=== PATIENT | female | born 1945 | race Caucasian/White ===

== ENCOUNTER 2018-03-30 11:44 | Inpatient (IN) | payer MEDICARE, BC ==
[~2018-03-30] VITALS: Ht 157.5 cm; Wt 69.1 kg
[2018-03-30] MEDS ORDERED: ondansetron/PF 4mg/2ml inj IV ONE (12:05)
[2018-03-30] MEDS ORDERED: potassium Cl 40MEQ/NS 500ml 500 ML IV PRN ×2 (12:25)
[2018-03-30] MEDS ORDERED: HYDROcodone/acetaminophen 10/325mg tab PO PRN (12:25)
[2018-03-30] MEDS ORDERED: magnesium hydroxide 30ml (MOM) UD suspension PO PRN (12:25)
[2018-03-30] MEDS ORDERED: HYDROmorphone inj. 0.5 MG/0.5 ML DISP.SYRIN IV PRN ×2 (12:25)
[2018-03-30] MEDS ORDERED: magnesium Cl slow-release 64mg tablet PO PRN (12:25)
[2018-03-30] MEDS ORDERED: HYDROcodone/acetaminophen 5mg/325mg tablet PO PRN (12:25)
[2018-03-30] MEDS ORDERED: magnesium 4gm in 100ml NS 100 ML IV PRN (12:25)
[2018-03-30] MEDS ORDERED: ondansetron/PF 4mg/2ml inj IV PRN (12:25)
[2018-03-30] MEDS: K and/or MAG REPLACEMENT MC SCH (12:25)
[2018-03-30] MEDS ORDERED: mag hydrox/Alum hydrox/simeth 30ml oral suspension PO PRN (12:25)
[2018-03-30] MEDS ORDERED: magnesium 1gm/100ml D5W IVPB 50 ML IV PRN (12:25)
[2018-03-30] MEDS ORDERED: potassium Cl 20 mEq SR tablet PO PRN ×2 (12:25)
[2018-03-30] MEDS ORDERED: acetaminophen 325mg tablet PO PRN ×2 (12:25)
[2018-03-30] MEDS ORDERED: normal saline 1000ML IV soln IVB ONE (12:35)
[2018-03-30 12:43] LABS: BASOPHILS % (AUTO) 0.1 % (0-1); EOSINOPHILS % (AUTO) 0 % (0-6); HEMATOCRIT 33.6 % (35.0-45.0); HEMOGLOBIN 11.5 g/dl (12.0-16.0); LYMPHOCYTES # (AUTO) 0.3 X10'3 (1.1-4.8); LYMPHOCYTES % (AUTO) 2.8 % (21-51); MEAN CORPUSCULAR HEMOGLOBIN 31.5 PG (27.0-31.0); MEAN CORPUSCULAR HGB CONC 34.2 % (33.0-36.5); MEAN CORPUSCULAR VOLUME 92.1 FL (78-98); MEAN PLATELET VOLUME 8.4 FL (7.4-10.4); MONOCYTES # (AUTO) 0.3 X10'3 (0-0.9); NEUTROPHILS # (AUTO) 10.9 X10'3 (1.8-7.7); NEUTROPHILS % (AUTO) 94.1 % (42-75); PLATELET COUNT 139 X10'3 (140-440); RED BLOOD COUNT 3.65 X10'6 (4.20-5.60); RED CELL DISTRIBUTION WIDTH 12.6 % (11.5-14.5); WHITE BLOOD COUNT 11.6 X10'3 (4.5-11.0)
[2018-03-30 12:53] LABS: INR 1.1 INR; PARTIAL THROMBOPLASTIN TIME 28 SECONDS (22-32); PROTHROMBIN TIME 11.1 SECONDS (9.0-12.0)
[2018-03-30 12:57] LABS: ALANINE AMINOTRANSFERASE 30 U/L (12-78); ALBUMIN 2.5 G/DL (3.4-5.0); ALBUMIN/GLOBULIN RATIO 0.8 (1.1-1.5); ALKALINE PHOSPHATASE 41 IU/L (46-116); ANION GAP 8 (8-16); ASPARTATE AMINO TRANSFERASE 28 U/L (10-37); BILIRUBIN,TOTAL 0.4 MG/DL (0.1-1.0); BLOOD UREA NITROGEN 19 MG/DL (7-18); BUN/CREATININE RATIO 17.9 (6.6-38.0); CALCIUM 7.8 MG/DL (8.5-10.1); CHLORIDE 109 MMOL/L (99-107); CREATININE 1.06 MG/DL (0.40-0.90); GLUCOSE 130 MG/DL (70-104); LIPASE < 50 U/L (73-393); POTASSIUM 3.8 MMOL/L (3.5-5.1); SODIUM 140 MMOL/L (135-145); TOTAL PROTEIN 5.8 G/DL (6.4-8.2); eGFR 51 ML/MIN
[2018-03-30 13:01] LABS: PLATELET ESTIMATE DECREASED; TOTAL CELLS COUNTED 100
[2018-03-30] MEDS ORDERED: ZOLP10TA PO (13:01)
[2018-03-30] MEDS ORDERED: FOLI0.4T2 PO (13:01)
[2018-03-30] MEDS ORDERED: LEVO50TA PO (13:01)
[2018-03-30] MEDS ORDERED: PANT-47 PO (13:01)
[2018-03-30] MEDS ORDERED: PRAV80TA3 PO (13:01)
[2018-03-30] MEDS ORDERED: ASPI81TA52 PO (13:01)
[2018-03-30] MEDS ORDERED: OMEG1CAP PO (13:01)
[2018-03-30] MEDS ORDERED: TELM40TA2 PO (13:01)
[2018-03-30] MEDS ORDERED: CITA20TA2 PO (13:01)
[2018-03-30] MEDS ORDERED: ETAN50DI SUBCUT (13:02)
[2018-03-30] MEDS: normal saline 1000ml 1,000 ML IV SCH ×2 (13:37→18:01)
[2018-03-30 13:59] LABS: CLARITY,URINE CLOUDY (Clear); COLOR,URINE ORANGE (Yellow)
[2018-03-30 14:08] LABS: UA COLLECTION TYPE CLN CATCH MIDSTREAM
[2018-03-30 14:09] LABS: RBC,URINE 0-2 /HPF (0-2); WBC,URINE TNTC /HPF (0-4)
[2018-03-30 14:10] LABS: BACTERIA,URINE 4+ /HPF (Neg); MUCUS STRANDS NONE SEEN /LPF (Neg); SQUAMOUS EPITHELIAL CELL,UR FEW /LPF (FEW); WBC CLUMPS,URINE MODERATE /HPF (NEGATIVE)
[2018-03-30] MEDS ORDERED: HYDROmorphone 1 mg/ml syringe IV PRN ×2 (15:22)
[2018-03-30] MEDS ORDERED: non-formulary drug (Zolpidem Tartrate (Ambien) 1 TAB) PO SCH (17:45)
[2018-03-30 19:00] VITALS: BP 107/52
[2018-03-31] VITALS (31 sets, daily range): BP systolic 80–134; BP diastolic 45–86
[2018-03-31] MEDS: normal saline 1000ml 1,000 ML IV SCH ×2 (03:05→12:48)
[2018-03-31 05:29] LABS: HEMATOCRIT 30.5 % (35.0-45.0); HEMOGLOBIN 10.5 g/dl (12.0-16.0); MEAN CORPUSCULAR HEMOGLOBIN 31.5 PG (27.0-31.0); MEAN CORPUSCULAR HGB CONC 34.3 % (33.0-36.5); MEAN CORPUSCULAR VOLUME 91.8 FL (78-98); MEAN PLATELET VOLUME 8.5 FL (7.4-10.4); PLATELET COUNT 112 X10'3 (140-440); RED BLOOD COUNT 3.32 X10'6 (4.20-5.60); RED CELL DISTRIBUTION WIDTH 12.8 % (11.5-14.5); WHITE BLOOD COUNT 7.9 X10'3 (4.5-11.0)
[2018-03-31 05:33] LABS: ALBUMIN 2.1 G/DL (3.4-5.0); ANION GAP 5 (8-16); BLOOD UREA NITROGEN 21 MG/DL (7-18); BUN/CREATININE RATIO 21.4 (6.6-38.0); CALCIUM 7.4 MG/DL (8.5-10.1); CHLORIDE 111 MMOL/L (99-107); CREATININE 0.98 MG/DL (0.40-0.90); GLUCOSE 99 MG/DL (70-104); MAGNESIUM 1.6 MG/DL (1.5-2.4); POTASSIUM 3.9 MMOL/L (3.5-5.1); SODIUM 141 MMOL/L (135-145); TOTAL CARBON DIOXIDE 24.9 MMOL/L (24-32); eGFR 56 ML/MIN
[2018-03-31] MEDS: K and/or MAG REPLACEMENT MC SCH (06:49)
[2018-03-31] MEDS: levoTHYROXINE 25mcg tablet PO SCH (07:00)
[2018-03-31] MEDS ORDERED: iohexol 300 MG/1 ML 50ml polymer ONE (07:44)
[2018-03-31] MEDS: CITALOpram 10mg tablet PO SCH (07:46)
[2018-03-31] MEDS: pravastatin 40mg tablet PO SCH (07:48)
[2018-03-31] MEDS: pantoprazole 40mg Tablet.DR PO SCH (07:48)
[2018-03-31] MEDS ORDERED: losartan 50mg tablet PO SCH (08:00)
[2018-03-31] MEDS ORDERED: non-formulary drug (Pravastatin Sodium 1 TAB) PO SCH (08:00)
[2018-03-31] MEDS ORDERED: CefTRIAXone/D5W-Rocephin 1gm 50 ML IV SCH (08:00)
[2018-03-31] MEDS ORDERED: CITALOPRAM HYDROBROMIDE PO SCH (08:00)
[2018-03-31] MEDS ORDERED: TELMISARTAN PO SCH (08:00)
[2018-03-31] MEDS ORDERED: non-formulary drug (Levothyroxine Sodium (Synthroid) 1 TAB) PO SCH (08:00)
[2018-03-31] MEDS ORDERED: fentaNYL/PF 50MCG/1 ML 2ML syringe ONE (08:29)
[2018-03-31] MEDS ORDERED: LIDOcaine 2% (20mg/ml) 5ml vial ONE (08:34)
[2018-03-31] MEDS ORDERED: propofol inj 20 ML IV ONE (08:34)
[2018-03-31] MEDS ORDERED: rocuronium 10mg/ml inj IV ONE (08:34)
[2018-03-31] MEDS ORDERED: midazolam 2 mg/2 ml injection ONE (09:19)
[2018-03-31] MEDS ORDERED: normal saline 1000ml 1,000 ML IV ONE ×2 (09:42→10:50)
[2018-03-31] MEDS ORDERED: morphine 4 MG/ML inj SYRINge IV PRN ×3 (09:45→11:10)
[2018-03-31] MEDS ORDERED: HYDROmorphone inj. 0.5 MG/0.5 ML DISP.SYRIN IV PRN (09:45)
[2018-03-31] MEDS ORDERED: ondansetron/PF 4mg/2ml inj IV PRN ×2 (09:45→11:10)
[2018-03-31 10:01] LABS: CLARITY,URINE TURBID (Clear); COLOR,URINE YELLOW (Yellow); GLUCOSE, URINE NEGATIVE (Neg); KETONES,URINE TRACE mg/dl (Neg); LEUKOCYTE ESTERASE ,URINE LARGE (Neg); NITRITES, URINE POSITIVE (Neg); OCCULT BLOOD,URINE LARGE (Neg); PROTEIN,URINE 100 mg/dl (Neg); UROBILINOGEN,URINE 0.2 E.U/dL (0.2-1.0)
[2018-03-31] MEDS ORDERED: neostigmine methylsulfate 1 MG/ML 10ml vial ONE (10:04)
[2018-03-31] MEDS ORDERED: ondansetron/PF 4mg/2ml inj ONE (10:04)
[2018-03-31] MEDS ORDERED: glycopyrrolate 0.2mg/ml inj ONE (10:04)
[2018-03-31] MEDS ORDERED: metoprolol tartrate 1mg/ml inj IV ONE (10:04)
[2018-03-31 10:06] LABS: UA COLLECTION TYPE OTHER
[2018-03-31] MEDS ORDERED: succinylcholine 20mg/ml inj IV ONE (10:06)
[2018-03-31 10:07] LABS: WBC,URINE TNTC /HPF (0-4)
[2018-03-31 10:08] LABS: BACTERIA,URINE 4+ /HPF (Neg); MUCUS STRANDS FEW /LPF (Neg); RENAL CELLS, URINE FEW /HPF; SQUAMOUS EPITHELIAL CELL,UR FEW /LPF (FEW)
[2018-03-31] MEDS ORDERED: albumin (Human) 5% 250ml 250 ML IV ONE (10:08)
[2018-03-31] MEDS ORDERED: albumin (Human) 5% 250 ML IV solution IV STA (10:10)
[2018-03-31] MEDS ORDERED: NORepinephrine 8mg/ 250ml NS 250 ML IV PRN (10:38)
[2018-03-31] MEDS ORDERED: midazolam 100mg in NS 100ml 100 ML IV PRN (10:49)
[2018-03-31] MEDS ORDERED: acetaminophen 325mg tablet PO PRN ×2 (11:10)
[2018-03-31] MEDS ORDERED: potassium Cl 20 mEq SR tablet PO PRN (11:10)
[2018-03-31] MEDS: enoxaparin 40mg/0.4ml syringe SUBCUT SCH (11:10)
[2018-03-31] MEDS ORDERED: albuterol 2.5 MG/3 ML nebule NEB PRN (11:10)
[2018-03-31] MEDS ORDERED: magnesium hydroxide 30ml (MOM) UD suspension PO PRN (11:10)
[2018-03-31] MEDS: K, MAG and/or Phos replacement - Verify level? MC SCH (11:10)
[2018-03-31] MEDS ORDERED: magnesium 1gm/100ml D5W IVPB 100 ML IV PRN (11:25)
[2018-03-31] MEDS: pantoprazole 40 MG vial IV SCH (13:04)
[2018-03-31] MEDS: hydrocortisone sod succ/PF 100mg/2ml inj. IV SCH ×2 (14:08→21:10)
[2018-03-31] MEDS: folic acid 0.4mg tablet PO SCH (20:00)
[2018-03-31] MEDS: omega-3 acid ethyl esters 1GM capsule PO SCH (20:00)
[2018-04-01] VITALS (24 sets, daily range): BP systolic 96–133; BP diastolic 48–79
[2018-04-01] MEDS ORDERED: atropine 0.1mg/ml 10ml syringe IV PRN (00:20)
[2018-04-01] MEDS ORDERED: atropine 0.1mg/ml 10ml syringe ONE (00:36)
[2018-04-01] MEDS: hydrocortisone sod succ/PF 100mg/2ml inj. IV SCH ×4 (02:00→20:08)
[2018-04-01 03:50] LABS: ABG BASE EXCESS -7.8 mmol/L (-2.0-3.0); ABG HCO3 17.1 mmol/L (22.0-26.0); ABG OXYGEN SATURATION 98.4 % (95-98); ABG PCO2 (T) 33.2 mmHg (32.0-45.0); ABG PH (T) 7.331 (7.350-7.450); ABG PO2 (T) 135.2 mmHg (83-108); ALLEN'S TEST Positive; FCOHb 0.3 % (0.5-1.5); FMetHb 0.1 % (0.3-1.12); MINUTE VOLUME 7 L/min; PATIENT TEMPERATURE 37.2; PEEP 5 cm H2O; RESPIRATORY RATE (OBSERVED) 11 b/min; TOTAL HEMOGLOBIN 10.9 G/dl (12.0-16.0)
[2018-04-01] MEDS: normal saline 1000ml 1,000 ML IV SCH (04:24)
[2018-04-01 05:54] LABS: BASOPHILS % (AUTO) 0.1 % (0-1); EOSINOPHILS % (AUTO) 0 % (0-6); HEMATOCRIT 30.4 % (35.0-45.0); HEMOGLOBIN 10.4 g/dl (12.0-16.0); LYMPHOCYTES # (AUTO) 0.6 X10'3 (1.1-4.8); LYMPHOCYTES % (AUTO) 10.2 % (21-51); MEAN CORPUSCULAR HEMOGLOBIN 31.5 PG (27.0-31.0); MEAN CORPUSCULAR HGB CONC 34.3 % (33.0-36.5); MEAN CORPUSCULAR VOLUME 91.7 FL (78-98); MEAN PLATELET VOLUME 9.4 FL (7.4-10.4); MONOCYTES # (AUTO) 0.2 X10'3 (0-0.9); MONOCYTES % (AUTO) 3.6 % (2-12); NEUTROPHILS # (AUTO) 5.5 X10'3 (1.8-7.7); NEUTROPHILS % (AUTO) 86.1 % (42-75); PLATELET COUNT 112 X10'3 (140-440); RED BLOOD COUNT 3.31 X10'6 (4.20-5.60); RED CELL DISTRIBUTION WIDTH 13.6 % (11.5-14.5); WHITE BLOOD COUNT 6.3 X10'3 (4.5-11.0)
[2018-04-01 06:17] LABS: PARTIAL THROMBOPLASTIN TIME 30 SECONDS (22-32); PROTHROMBIN TIME 10.2 SECONDS (9.0-12.0)
[2018-04-01 06:50] LABS: ALANINE AMINOTRANSFERASE 25 U/L (12-78); ALBUMIN 2.1 G/DL (3.4-5.0); ALBUMIN/GLOBULIN RATIO 0.7 (1.1-1.5); ALKALINE PHOSPHATASE 50 IU/L (46-116); ANION GAP 15 (8-16); ASPARTATE AMINO TRANSFERASE 19 U/L (10-37); BILIRUBIN,TOTAL 0.3 MG/DL (0.1-1.0); BLOOD UREA NITROGEN 18 MG/DL (7-18); BUN/CREATININE RATIO 23.1 (6.6-38.0); CALCIUM 7.4 MG/DL (8.5-10.1); CHLORIDE 114 MMOL/L (99-107); CREATININE 0.78 MG/DL (0.40-0.90); GLUCOSE 91 MG/DL (70-104); MAGNESIUM 1.7 MG/DL (1.5-2.4); PHOSPHORUS 2.6 MG/DL (2.3-4.5); POTASSIUM 3.5 MMOL/L (3.5-5.1); SODIUM 148 MMOL/L (135-145); TOTAL PROTEIN 5.2 G/DL (6.4-8.2); eGFR 73 ML/MIN
[2018-04-01] MEDS: K and/or MAG REPLACEMENT MC SCH (08:00)
[2018-04-01] MEDS: K, MAG and/or Phos replacement - Verify level? MC SCH (08:00)
[2018-04-01] MEDS: pantoprazole 40 MG vial IV SCH (08:00)
[2018-04-01] MEDS: enoxaparin 40mg/0.4ml syringe SUBCUT SCH (09:18)
[2018-04-01] MEDS: cefepime 2g/NS 100ml ADVANTAGE 100 ML IV SCH ×2 (09:19→20:09)
[2018-04-01] MEDS: pantoprazole 40mg Tablet.DR PO SCH (09:19)
[2018-04-01] MEDS: pravastatin 40mg tablet PO SCH (09:19)
[2018-04-01] MEDS: levoTHYROXINE 25mcg tablet PO SCH (09:19)
[2018-04-01] MEDS: CITALOpram 10mg tablet PO SCH (09:19)
[2018-04-01] MEDS: omega-3 acid ethyl esters 1GM capsule PO SCH ×2 (09:19→20:08)
[2018-04-01] MEDS: sulfamethoxazole/trimethoprim DS (800/160mg) tablet PO SCH ×2 (09:19→20:08)
[2018-04-01] MEDS: folic acid 0.4mg tablet PO SCH ×2 (09:19→20:08)
[2018-04-01] MEDS: aspirin 81mg tablet.DR PO SCH (09:20)
[2018-04-01] MEDS: zolpidem 5mg tablet PO PRN (22:39)
[2018-04-02] VITALS (21 sets, daily range): BP systolic 103–132; BP diastolic 48–74
[2018-04-02] MEDS: hydrocortisone sod succ/PF 100mg/2ml inj. IV SCH ×3 (02:22→20:16)
[2018-04-02 05:15] LABS: BASOPHILS % (AUTO) 0 % (0-1); EOSINOPHILS % (AUTO) 0 % (0-6); HEMATOCRIT 31.5 % (35.0-45.0); HEMOGLOBIN 10.8 g/dl (12.0-16.0); LYMPHOCYTES # (AUTO) 0.8 X10'3 (1.1-4.8); LYMPHOCYTES % (AUTO) 10.1 % (21-51); MEAN CORPUSCULAR HEMOGLOBIN 31.3 PG (27.0-31.0); MEAN CORPUSCULAR HGB CONC 34.1 % (33.0-36.5); MEAN CORPUSCULAR VOLUME 91.6 FL (78-98); MEAN PLATELET VOLUME 9.6 FL (7.4-10.4); MONOCYTES # (AUTO) 0.2 X10'3 (0-0.9); MONOCYTES % (AUTO) 3.2 % (2-12); NEUTROPHILS # (AUTO) 6.7 X10'3 (1.8-7.7); NEUTROPHILS % (AUTO) 86.7 % (42-75); PLATELET COUNT 146 X10'3 (140-440); RED BLOOD COUNT 3.44 X10'6 (4.20-5.60); RED CELL DISTRIBUTION WIDTH 13.1 % (11.5-14.5); WHITE BLOOD COUNT 7.7 X10'3 (4.5-11.0)
[2018-04-02 05:27] LABS: PARTIAL THROMBOPLASTIN TIME 27 SECONDS (22-32); PROTHROMBIN TIME 9.9 SECONDS (9.0-12.0)
[2018-04-02 05:44] LABS: ALANINE AMINOTRANSFERASE 20 U/L (12-78); ALBUMIN 2.1 G/DL (3.4-5.0); ALBUMIN/GLOBULIN RATIO 0.6 (1.1-1.5); ALKALINE PHOSPHATASE 49 IU/L (46-116); ANION GAP 9 (8-16); ASPARTATE AMINO TRANSFERASE 13 U/L (10-37); BILIRUBIN,TOTAL 0.3 MG/DL (0.1-1.0); BLOOD UREA NITROGEN 18 MG/DL (7-18); BUN/CREATININE RATIO 23.7 (6.6-38.0); CALCIUM 8.1 MG/DL (8.5-10.1); CHLORIDE 112 MMOL/L (99-107); CREATININE 0.76 MG/DL (0.40-0.90); GLUCOSE 140 MG/DL (70-104); PHOSPHORUS 1.3 MG/DL (2.3-4.5); POTASSIUM 3.4 MMOL/L (3.5-5.1); SODIUM 144 MMOL/L (135-145); TOTAL CARBON DIOXIDE 22.7 MMOL/L (24-32); TOTAL PROTEIN 5.5 G/DL (6.4-8.2); eGFR 75 ML/MIN
[2018-04-02] MEDS: aspirin 81mg tablet.DR PO SCH (07:45)
[2018-04-02] MEDS: pravastatin 40mg tablet PO SCH (07:45)
[2018-04-02] MEDS: levoTHYROXINE 25mcg tablet PO SCH (07:45)
[2018-04-02] MEDS: sulfamethoxazole/trimethoprim DS (800/160mg) tablet PO SCH ×2 (07:45→20:16)
[2018-04-02] MEDS: folic acid 0.4mg tablet PO SCH ×2 (07:45→20:15)
[2018-04-02] MEDS: CITALOpram 10mg tablet PO SCH (07:45)
[2018-04-02] MEDS: omega-3 acid ethyl esters 1GM capsule PO SCH ×2 (07:46→20:14)
[2018-04-02] MEDS: pantoprazole 40mg Tablet.DR PO SCH (07:46)
[2018-04-02] MEDS: cefepime 2g/NS 100ml ADVANTAGE 100 ML IV SCH ×2 (07:46→20:15)
[2018-04-02] MEDS: enoxaparin 40mg/0.4ml syringe SUBCUT SCH (07:47)
[2018-04-02] MEDS: K and/or MAG REPLACEMENT MC SCH (08:00)
[2018-04-02] MEDS: K, MAG and/or Phos replacement - Verify level? MC SCH (08:00)
[2018-04-02] MEDS: potassium Cl 20 mEq SR tablet PO PRN ×2 (13:45→17:34)
[2018-04-02] MEDS ORDERED: benzocaine/menthol oral lozeng 1 EACH BOX MM PRN (13:45)
[2018-04-02] MEDS: zolpidem 5mg tablet PO PRN (22:02)
[2018-04-03] VITALS (11 sets, daily range): BP systolic 111–136; BP diastolic 53–75
[2018-04-03 05:18] LABS: BASOPHILS # (AUTO) 0.1 X10'3 (0-0.2); BASOPHILS % (AUTO) 0.8 % (0-1); EOSINOPHILS % (AUTO) 0 % (0-6); HEMOGLOBIN 10.9 g/dl (12.0-16.0); LYMPHOCYTES # (AUTO) 1.6 X10'3 (1.1-4.8); LYMPHOCYTES % (AUTO) 18.5 % (21-51); MEAN CORPUSCULAR HEMOGLOBIN 31.2 PG (27.0-31.0); MEAN CORPUSCULAR VOLUME 91.8 FL (78-98); MEAN PLATELET VOLUME 9.9 FL (7.4-10.4); MONOCYTES # (AUTO) 0.7 X10'3 (0-0.9); MONOCYTES % (AUTO) 7.7 % (2-12); NEUTROPHILS # (AUTO) 6.3 X10'3 (1.8-7.7); PARTIAL THROMBOPLASTIN TIME 25 SECONDS (22-32); PLATELET COUNT 155 X10'3 (140-440); RED BLOOD COUNT 3.49 X10'6 (4.20-5.60); RED CELL DISTRIBUTION WIDTH 13.1 % (11.5-14.5); WHITE BLOOD COUNT 8.6 X10'3 (4.5-11.0)
[2018-04-03 05:30] LABS: ALANINE AMINOTRANSFERASE 22 U/L (12-78); ALBUMIN 2.1 G/DL (3.4-5.0); ALBUMIN/GLOBULIN RATIO 0.7 (1.1-1.5); ALKALINE PHOSPHATASE 44 IU/L (46-116); ANION GAP 6 (8-16); ASPARTATE AMINO TRANSFERASE 16 U/L (10-37); BILIRUBIN,TOTAL 0.3 MG/DL (0.1-1.0); BLOOD UREA NITROGEN 23 MG/DL (7-18); BUN/CREATININE RATIO 26.7 (6.6-38.0); CALCIUM 8.1 MG/DL (8.5-10.1); CHLORIDE 113 MMOL/L (99-107); CREATININE 0.86 MG/DL (0.40-0.90); GLUCOSE 124 MG/DL (70-104); MAGNESIUM 1.9 MG/DL (1.5-2.4); PHOSPHORUS 1.3 MG/DL (2.3-4.5); POTASSIUM 3.9 MMOL/L (3.5-5.1); SODIUM 143 MMOL/L (135-145); TOTAL CARBON DIOXIDE 24.2 MMOL/L (24-32); TOTAL PROTEIN 5.2 G/DL (6.4-8.2); eGFR 65 ML/MIN
[2018-04-03] MEDS: K, MAG and/or Phos replacement - Verify level? MC SCH (08:00)
[2018-04-03] MEDS: folic acid 0.4mg tablet PO SCH ×2 (08:02→20:27)
[2018-04-03] MEDS: aspirin 81mg tablet.DR PO SCH (08:02)
[2018-04-03] MEDS: pantoprazole 40mg Tablet.DR PO SCH (08:02)
[2018-04-03] MEDS: CITALOpram 10mg tablet PO SCH (08:02)
[2018-04-03] MEDS: omega-3 acid ethyl esters 1GM capsule PO SCH ×2 (08:03→20:27)
[2018-04-03] MEDS: levoTHYROXINE 25mcg tablet PO SCH (08:03)
[2018-04-03] MEDS: sulfamethoxazole/trimethoprim DS (800/160mg) tablet PO SCH (08:03)
[2018-04-03] MEDS: pravastatin 40mg tablet PO SCH (08:06)
[2018-04-03] MEDS: hydrocortisone sod succ/PF 100mg/2ml inj. IV SCH ×2 (08:27→20:29)
[2018-04-03] MEDS: enoxaparin 40mg/0.4ml syringe SUBCUT SCH (08:27)
[2018-04-03] MEDS: cefepime 2g/NS 100ml ADVANTAGE 100 ML IV SCH ×2 (08:27→20:29)
[2018-04-03] MEDS: Neutra Phos packet PO PRN ×2 (13:11→20:44)
[2018-04-03] MEDS: zolpidem 5mg tablet PO PRN (22:21)
[2018-04-04] VITALS: BP 152/82
[2018-04-04] MEDS: Neutra Phos packet PO PRN (03:03)
[2018-04-04 05:12] LABS: BASOPHILS % (AUTO) 0.3 % (0-1); EOSINOPHILS # (AUTO) 0.1 X10'3 (0-0.9); EOSINOPHILS % (AUTO) 0.7 % (0-6); LYMPHOCYTES # (AUTO) 2.1 X10'3 (1.1-4.8); LYMPHOCYTES % (AUTO) 26.7 % (21-51); MEAN CORPUSCULAR HGB CONC 34.3 % (33.0-36.5); MEAN CORPUSCULAR VOLUME 90.5 FL (78-98); MEAN PLATELET VOLUME 8.6 FL (7.4-10.4); MONOCYTES # (AUTO) 0.8 X10'3 (0-0.9); MONOCYTES % (AUTO) 10.2 % (2-12); NEUTROPHILS # (AUTO) 4.9 X10'3 (1.8-7.7); NEUTROPHILS % (AUTO) 62.1 % (42-75); PLATELET COUNT 166 X10'3 (140-440); RED BLOOD COUNT 3.54 X10'6 (4.20-5.60); WHITE BLOOD COUNT 7.8 X10'3 (4.5-11.0)
[2018-04-04 05:23] LABS: PARTIAL THROMBOPLASTIN TIME 25 SECONDS (22-32); PROTHROMBIN TIME 10.4 SECONDS (9.0-12.0)
[2018-04-04 05:34] LABS: ALANINE AMINOTRANSFERASE 19 U/L (12-78); ALBUMIN 2.1 G/DL (3.4-5.0); ALBUMIN/GLOBULIN RATIO 0.7 (1.1-1.5); ALKALINE PHOSPHATASE 43 IU/L (46-116); ANION GAP 6 (8-16); ASPARTATE AMINO TRANSFERASE 16 U/L (10-37); BILIRUBIN,TOTAL 0.3 MG/DL (0.1-1.0); BLOOD UREA NITROGEN 16 MG/DL (7-18); BUN/CREATININE RATIO 21.3 (6.6-38.0); CALCIUM 8.1 MG/DL (8.5-10.1); CHLORIDE 110 MMOL/L (99-107); CREATININE 0.75 MG/DL (0.40-0.90); GLUCOSE 117 MG/DL (70-104); MAGNESIUM 1.8 MG/DL (1.5-2.4); PHOSPHORUS 1.9 MG/DL (2.3-4.5); POTASSIUM 3.8 MMOL/L (3.5-5.1); SODIUM 143 MMOL/L (135-145); TOTAL CARBON DIOXIDE 27.1 MMOL/L (24-32); TOTAL PROTEIN 5.1 G/DL (6.4-8.2); eGFR 76 ML/MIN
[2018-04-04 07:00] VITALS: BP 118/71
[2018-04-04] MEDS: levoTHYROXINE 25mcg tablet PO SCH (07:57)
[2018-04-04] MEDS: CITALOpram 10mg tablet PO SCH (08:00)
[2018-04-04] MEDS: hydrocortisone sod succ/PF 100mg/2ml inj. IV SCH ×2 (08:00→19:36)
[2018-04-04] MEDS: pantoprazole 40mg Tablet.DR PO SCH (08:00)
[2018-04-04] MEDS: folic acid 0.4mg tablet PO SCH ×2 (08:00→19:37)
[2018-04-04] MEDS: K, MAG and/or Phos replacement - Verify level? MC SCH (08:00)
[2018-04-04] MEDS: omega-3 acid ethyl esters 1GM capsule PO SCH ×2 (08:00→19:37)
[2018-04-04] MEDS: pravastatin 40mg tablet PO SCH (08:00)
[2018-04-04] MEDS: aspirin 81mg tablet.DR PO SCH (08:00)
[2018-04-04] MEDS: enoxaparin 40mg/0.4ml syringe SUBCUT SCH (08:01)
[2018-04-04] MEDS: cefepime 2g/NS 100ml ADVANTAGE 100 ML IV SCH ×2 (08:05→19:35)
[2018-04-04] MEDS ORDERED: bisacodyl 10mg suppository rectal RC STA (11:17)
[2018-04-04 12:00] VITALS: BP 139/76
[2018-04-04] MEDS: lactobacillus rhamnosus 10,000 MMU CELLS/CAPSULE PO SCH (19:37)
[2018-04-04] MEDS: docusate sod 100mg capsule PO SCH (19:37)
[2018-04-04 20:00] VITALS: BP 143/87
[2018-04-04] MEDS: zolpidem 5mg tablet PO PRN (21:42)
[2018-04-05] VITALS: BP 95/60
[2018-04-05 05:29] LABS: BASOPHILS % (AUTO) 0 % (0-1); EOSINOPHILS # (AUTO) 0.1 X10'3 (0-0.9); EOSINOPHILS % (AUTO) 1.4 % (0-6); HEMATOCRIT 31.7 % (35.0-45.0); HEMOGLOBIN 10.9 g/dl (12.0-16.0); LYMPHOCYTES # (AUTO) 2.2 X10'3 (1.1-4.8); LYMPHOCYTES % (AUTO) 29.3 % (21-51); MEAN CORPUSCULAR HEMOGLOBIN 31.4 PG (27.0-31.0); MEAN CORPUSCULAR HGB CONC 34.3 % (33.0-36.5); MEAN CORPUSCULAR VOLUME 91.4 FL (78-98); MEAN PLATELET VOLUME 8.8 FL (7.4-10.4); MONOCYTES # (AUTO) 0.6 X10'3 (0-0.9); MONOCYTES % (AUTO) 8.5 % (2-12); NEUTROPHILS # (AUTO) 4.5 X10'3 (1.8-7.7); NEUTROPHILS % (AUTO) 60.8 % (42-75); PLATELET COUNT 178 X10'3 (140-440); RED BLOOD COUNT 3.47 X10'6 (4.20-5.60); RED CELL DISTRIBUTION WIDTH 12.8 % (11.5-14.5); WHITE BLOOD COUNT 7.4 X10'3 (4.5-11.0)
[2018-04-05 05:31] LABS: PARTIAL THROMBOPLASTIN TIME 25 SECONDS (22-32); PROTHROMBIN TIME 10.5 SECONDS (9.0-12.0)
[2018-04-05 05:42] LABS: ALANINE AMINOTRANSFERASE 26 U/L (12-78); ALBUMIN 2.3 G/DL (3.4-5.0); ALBUMIN/GLOBULIN RATIO 0.8 (1.1-1.5); ALKALINE PHOSPHATASE 39 IU/L (46-116); ANION GAP 5 (8-16); ASPARTATE AMINO TRANSFERASE 19 U/L (10-37); BILIRUBIN,TOTAL 0.4 MG/DL (0.1-1.0); BLOOD UREA NITROGEN 14 MG/DL (7-18); BUN/CREATININE RATIO 18.9 (6.6-38.0); CALCIUM 8.5 MG/DL (8.5-10.1); CHLORIDE 108 MMOL/L (99-107); CREATININE 0.74 MG/DL (0.40-0.90); GLUCOSE 109 MG/DL (70-104); MAGNESIUM 1.8 MG/DL (1.5-2.4); PHOSPHORUS 2.9 MG/DL (2.3-4.5); POTASSIUM 3.7 MMOL/L (3.5-5.1); SODIUM 142 MMOL/L (135-145); TOTAL CARBON DIOXIDE 28.8 MMOL/L (24-32); TOTAL PROTEIN 5.2 G/DL (6.4-8.2); eGFR 77 ML/MIN
[2018-04-05 07:00] VITALS: BP 144/74
[2018-04-05] MEDS: omega-3 acid ethyl esters 1GM capsule PO SCH (07:54)
[2018-04-05] MEDS: K, MAG and/or Phos replacement - Verify level? MC SCH (08:00)
[2018-04-05] MEDS ORDERED: methylnaltrexone br 12mg/0.6ml inj***SubQ only SQ SCH (08:00)
[2018-04-05] MEDS: cefepime 2g/NS 100ml ADVANTAGE 100 ML IV SCH (08:10)
[2018-04-05] MEDS: CITALOpram 10mg tablet PO SCH (08:11)
[2018-04-05] MEDS: lactobacillus rhamnosus 10,000 MMU CELLS/CAPSULE PO SCH (08:12)
[2018-04-05] MEDS: aspirin 81mg tablet.DR PO SCH (08:12)
[2018-04-05] MEDS: pantoprazole 40mg Tablet.DR PO SCH (08:12)
[2018-04-05] MEDS: docusate sod 100mg capsule PO SCH (08:12)
[2018-04-05] MEDS: hydrocortisone sod succ/PF 100mg/2ml inj. IV SCH (08:12)
[2018-04-05] MEDS: pravastatin 40mg tablet PO SCH (08:12)
[2018-04-05] MEDS: folic acid 0.4mg tablet PO SCH (08:12)
[2018-04-05] MEDS: levoTHYROXINE 25mcg tablet PO SCH (08:12)
[2018-04-05] MEDS: enoxaparin 40mg/0.4ml syringe SUBCUT SCH (08:13)
[2018-04-05 12:17] VITALS: BP 149/72
== END 2018-04-05 14:45 | DRG 871 ==
LOC: ER 11:45 → ED HOLD 12:24 → EDBEDREQ 17:03 → SUR 3N 17:37 → PACU 03-31 11:25 → CICU 2S 03-31 12:10 → SUR 3N 04-03 15:00
PROVIDERS: ADMIT Family Medicine; ATTEND Internal Medicine
PROC: BT1D1ZZ Fluoroscopy of Right Kidney, Ureter and Bladder using Low Osmolar Contrast (ICD-10-PCS; 2018-03-31)
PROC: 5A1935Z Respiratory Ventilation, Less than 24 Consecutive Hours (ICD-10-PCS; 2018-03-31)
PROC: 0T768DZ Dilation of Right Ureter with Intraluminal Device, Via Natural or Artificial Opening Endoscopic (ICD-10-PCS; principal; 2018-03-31 08:27)
DX: A41.51 Sepsis due to Escherichia coli [E. coli] (principal); R65.21 Severe sepsis with septic shock; J96.01 Acute respiratory failure with hypoxia; N13.6 Pyonephrosis; N17.9 Acute kidney failure, unspecified; E78.5 Hyperlipidemia, unspecified; E03.9 Hypothyroidism, unspecified; F41.1 Generalized anxiety disorder; F32.9 Major depressive disorder, single episode, unspecified; E66.9 Obesity, unspecified; I12.9 Hypertensive chronic kidney disease with stage 1 through stage 4 chronic kidney disease, or unspecified chronic kidney disease; E87.6 Hypokalemia; R00.1 Bradycardia, unspecified; D64.9 Anemia, unspecified; N18.9 Chronic kidney disease, unspecified; J04.0 Acute laryngitis; K21.9 Gastro-esophageal reflux disease without esophagitis; Z90.710 Acquired absence of both cervix and uterus; Z98.51 Tubal ligation status; Z90.711 Acquired absence of uterus with remaining cervical stump; Z90.49 Acquired absence of other specified parts of digestive tract; Z79.899 Other long term (current) drug therapy; Z79.82 Long term (current) use of aspirin; Z86.010 Personal history of colon polyps; Z87.442 Personal history of urinary calculi; Z87.891 Personal history of nicotine dependence; Z68.27 Body mass index [BMI] 27.0-27.9, adult
CPT/HCPCS: 36415; 36600; 71045; 76000; 80048; 80053; 81001; 82803; 82948; 83605; 83690; 83735; 84100; 84145; 84443; 85018; 85025; 85027; 85610; 85730; 87040; 87070; 87077; 87088; 87186; 93005; 94002; 94003; 94760; 99285; A4315; A4402; A4620; A6213; A6449; C1758; C1769; C2617; C9113; J0330; J0461; J0692; J0696; J1650; J1720; J2001; J2250; J2270; J2405; J2704; J2710; J3010; J3490; J7030; P9045; Q9967